=== PATIENT | male | born 1970 | race Caucasian/White ===

== ENCOUNTER 2024-04-26 12:49 | Emergency (ER) | payer OTHER, SELFPAY ==
[2024-04-26 12:49] VITALS: BP 109/85; PULSE 68; RESP 18; TEMP 36.3; O2SAT 94; BMI 29.5
--- NOTE | 2024-04-26 13:03 | EKG12_ITS ---
Test Reason : Blood Pressure : / mmHG Vent. Rate : 079 BPM Atrial Rate : 079 BPM P-R Int : 160 ms QRS Dur : 098 ms QT Int : 400 ms P-R-T Axes : 043 056 033 degrees QTc Int : 458 ms Normal sinus rhythm Normal ECG No previous ECGs available Confirmed by Bhupendra Arechiga ([id number]), commissioning editor CLAYTON PATE ([id number]) on 04/29/2024 2:29:51 PM Referred By: Everardo Guthrie Confirmed By:Bhupendra Arechiga
--- NOTE | 2024-04-26 13:06 | EX.ED.DYSGE1 ---
HPI <JANNETTE Vogel - Last Filed: 04/26/24 14:16> History of Present Illness Chief Complaint: Syncope Narrative Narrative: Patient is a 53-year-old male with history of hyperlipidemia who [facility] after a syncopal episode. Patient works for a school district, he was fixing the water fountain's. Patient states he was constantly laying flat and standing up, he states that when he laid flat, then got up he felt dizzy and lightheaded and felt like he was going to pass out. He then felt sweaty and nauseous. Patient did try to vomit a trash can have the trash can was on wheels and he thinks he fell skinning the back of his head. Patient states he then laid down on the floor, he did feel better. His daughter is the school nurse, and called the patient's and brought him here. Patient denies any chest pain or shortness of breath. Pay states he was shaky however this is improving. FOR[facility]LY [facility], [facility]–1983 <JANNETTE Vogel - Last Filed: 04/26/24 14:16> [facility], [facility]1983 Medical History (Updated 04/26/24 @ 14:16 by JANNETTE Vogel) Dizziness Home Medications ?Medication ?Instructions ?Recorded ?Last Taken ?Type pravastatin 20 mg tablet 20 mg PO QHS 04/26/24 Unknown History Allergy/AdvReac Type Severity Reaction Status Date / Time No Known Allergies Allergy Verified 04/26/24 12:53 Family History no significant family his Surgical History no surgical history ROS <JANNETTE Vogel - Last Filed: 04/26/24 14:16> ROS ED ROS Narrative Constitutional: Negative for fever, chills, weight loss, weakness Eyes: Negative for vision loss, vision change, double vision ENT: Negative for any sore throat, ear pain, congestion Cardiovascular: Negative for any chest pain, tightness, palpitations Respiratory: Negative for any cough, sputum production, hemoptysis, dyspnea, dyspnea on exertion, orthopnea Gastrointestinal: Negative for any abdominal pain, nausea, vomiting, diarrhea, constipation, blood in stool, blood in vomit : Negative for any urinary frequency, dysuria, retention, blood in urine Muscle skeletal: Negative for any neck pain, back pain Neurological: Negative for any headache. Positive for syncope, dizziness Skin: Negative for any rashes, itching, lacerations. Abrasion to the occiput Psychiatric: Negative for any depression, anxiety, stress, suicidal ideation, homicidal ideation Hematologic: Negative for any excessive bruising, easy bleeding EXAM <JANNETTE Voegl - Last Filed: 04/26/24 14:16> Physical Exam Narrative Exam Narrative: Vital signs reviewed. Patient alert and orient x 4, patient is acting appropriate. HEET: Head normocephalic atraumatic, TMs clear bilaterally. Posterior pharynx is clear, moist mucous membranes. Nares clear bilaterally. Pupils are equal round reactive to light, negative for any hemotympanum or septal hematoma. Neck: Supple with no lymphadenopathy or tenderness. No signs of meningismus. Cardiac: Regular rate and rhythm no murmurs gallops or rubs, equal peripheral pulses bilaterally. Respiratory: Lungs clear to auscultation bilaterally. No chest tenderness. Abdomen: Soft, nontender, nondistended. No abdominal bruit or pulsatile masses. No hepatosplenomegaly Extremities: No peripheral edema, no signs of gross trauma or deformity. Active full range of motion of all extremities. Neuro: Cranial nerves II through XII intact, no focal neurological deficits. Skin: Clean dry and intact with no rash, purpura, petechiae, vesicles or pustules. Backs/flank: No CVA tenderness, no midline spinal tenderness, no deformity. Psych: Normal mood and affect. No SI, HI or acute psychosis. Const Vital Signs: 04/26/24 12:49 04/26/24 13:15 04/26/24 13:49 Temperature 97.4 F L Temperature Source Oral Pulse Rate 68 70 Respiratory Rate 18 Respiratory Pattern Normal Blood Pressure 109/85 H 118/80 Blood Pressure Mean 93 92 Pulse Ox 94 95 Oxygen Delivery Method Room Air Room Air 04/26/24 14:00 Temperature Temperature Source Pulse Rate 79 Respiratory Rate Respiratory Pattern Blood Pressure 121/83 H Blood Pressure Mean 95 Pulse Ox 96 Oxygen Delivery Method Room Air <Dr. Everardo Guthrie MD - Last Filed: 04/26/24 14:02> Physical Exam Const Vital Signs: 04/26/24 12:49 04/26/24 13:15 04/26/24 13:49 Temperature 97.4 F L Temperature Source Oral Pulse Rate 68 70 Respiratory Rate 18 Respiratory Pattern Normal Blood Pressure 109/85 H 118/80 Blood Pressure Mean 93 92 Pulse Ox 94 95 Oxygen Delivery Method Room Air Room Air 04/26/24 14:00 Temperature Temperature Source Pulse Rate 79 Respiratory Rate Respiratory Pattern Blood Pressure 121/83 H Blood Pressure Mean 95 Pulse Ox 96 Oxygen Delivery Method Room Air [facility] <Niall DuqueAVRIL-C - Last Filed: 04/26/24 14:16> [facility] Lab Data Labs: Laboratory Results - last 24 hr 04/26/24 13:20 WBC 12.0 H RBC 4.83 Hgb 15.2 Hct 44.2 MCV 91.5 MCH 31.5 MCHC 34.4 RDW Std Deviation 43.1 RDW Coeff of Rosibel 12.9 Plt Count 276 MPV 8.7 Immature Gran % (Auto) 0.600 Neut % (Auto) 84.6 H Lymph % (Auto) 9.0 L [place] % (Auto) 4.9 Eos % (Auto) 0.6 Baso % (Auto) 0.3 Absolute Neuts (auto) 10.1 H Absolute Lymphs (auto) 1.08 Nucleated RBC % 0 Sodium 136 Potassium 3.8 Chloride 104 Carbon Dioxide 25.0 Anion Gap 7 BUN 17 Creatinine 1.08 Estim Creat Clear Calc 84.42 Est GFR (MDRD) Af Amer 91 Est GFR (MDRD) Non-Af 76 BUN/Creatinine Ratio 15.7 Glucose 181 H Calcium 9.2 Total Bilirubin 1.00 AST 23 ALT 40 Alkaline Phosphatase 72 Troponin I High Sens 19 Total Protein 7.7 Albumin 4.0 Globulin 3.7 Albumin/Globulin Ratio 1.1 Radiography Diagnostic Testing: Clinical Impression(s) from Imaging Studies Chest X-Ray 04/26/24 13:55 IMPRESSION: Patchy opacities in multiple places likely representing atelectasis. Early/developing pneumonia cannot be excluded. Follow-up chest imaging to resolution is recommended. Electronically Signed: Casey Rivera MD at 14:08 EDT , EKG Normal sinus rhythm: Attestation: I personally reviewed and interpreted this EKG as follows: Comments: Normal sinus rhythm, rate of 79 bpm, OK 160 ms, QRS duration 90 ms, no acute ST elevation, no acute infarct noted. Treatment and Re-Evaluation :: Patient appears generally well, vital signs are stable, patient is nontoxic-appearing. Presenting to the emergency department with complaints of a syncopal episode, dizziness from laying to standing today while at work. Patient on my initial evaluation was looking well, slightly shaky however acting appropriate. Patient received a cardiac workup including some BMP, CMP. Patient will receive an EKG as well. Patient given IV fluids IV Zofran. Patient will need to be reevaluated. Patient CBC shows slight leukocytosis with white blood count 12.0, patient's chemistry showed a glucose of 181, troponin was 19 which is negative. EKG was unremarkable. Chest x-ray was negative. At this time, patient will be diagnosed with a vasovagal like syncope. I do not believe there is any concern for ACS or OH or any acute cardiopulmonary pathology. Patient will return to the emergency department for any worsening dizziness, syncopal episodes, he will follow-up outpatient. Patient was able to ambulate in the part without difficulty. Patient is agreeable with the plan and is stable for discharge. <Dr. Everardo Guthrie MD - Last Filed: 04/26/24 14:02> [facility] Narrative Medical decision making narrative: I have personally performed a face to face assessment of the patient and have reviewed the HECTOR Note. I performed a substantive portion of the visit including all aspects of the following. My garcia findings include: History is 53-year-old male past medical history of high cholesterol. Works in maintenance at an area school. Today had a near syncopal event. Said he felt fine earlier in the day. Has had no recent exertional chest pain or exertional dyspnea. No palpitations. He has not been recently ill. He denies nausea vomiting or diarrhea. He denies melena. He denies a fever. Denies any dysuria. He had this happen 1 other time but it was years ago. Exam is [well-appearing 53-year-old male. Vital signs are stable afebrile. Pulse ox 94% on room air no hypoxia. H EENT exam unremarkable. He has had a small abrasion top of his head. He does not need stone. Pupils round react to light. No facial droop. Neck nontender. Trachea midline. Back nontender. Lungs clear to auscultation bilaterally. Heart regular rate and rhythm rate about 70 no murmur. Chest wall and ribs are nontender. Abdomen soft nontender. No peritoneal signs. No bruising. Pelvic girdle intact. Moving all 4 extremities. 5 out of 5 equipment validation specialist strength. Dorsi plantarflexion intact. No deformity. Nontender no edema. No cords. Neurologically is awake and alert. Answering questions following commands. NIH is 0.] Medical Decision Making [53-year-old male near-syncopal episode at work. He was having no symptoms prior to this. He has had no recent cardiac symptoms such as chest pain or shortness of breath. He had this 1 other time it was years ago he never had a specific cause. He has a benign exam at this time. Undergo cardiac workup.] Other additions or changes: [None] History & Record Review Discussion w/independent historian: Patient Additional record(s) reviewed:: No prior records Lab Data Attestation: I reviewed the patient's lab results. Lab results narrative: CBC white count 12. H&H 15 and 44. Platelets 276. Normal sinus rhythm no acute signs of OH or ischemia. No dysrhythmia. Labs: Laboratory Results - last 24 hr 04/26/24 13:20 WBC 12.0 H RBC 4.83 Hgb 15.2 Hct 44.2 MCV 91.5 MCH 31.5 MCHC 34.4 RDW Std Deviation 43.1 RDW Coeff of Rosibel 12.9 Plt Count 276 MPV 8.7 Immature Gran % (Auto) 0.600 Neut % (Auto) 84.6 H Lymph % (Auto) 9.0 L [place] % (Auto) 4.9 Eos % (Auto) 0.6 Baso % (Auto) 0.3 Absolute Neuts (auto) 10.1 H Absolute Lymphs (auto) 1.08 Nucleated RBC % 0 Sodium 136 Potassium 3.8 Chloride 104 Carbon Dioxide 25.0 Anion Gap 7 BUN 17 Creatinine 1.08 Estim Creat Clear Calc 84.42 Est GFR (MDRD) Af Amer 91 Est GFR (MDRD) Non-Af 76 BUN/Creatinine Ratio 15.7 Glucose 181 H Calcium 9.2 Total Bilirubin 1.00 AST 23 ALT 40 Alkaline Phosphatase 72 Troponin I High Sens 19 Total Protein 7.7 Albumin 4.0 Globulin 3.7 Albumin/Globulin Ratio 1.1 Radiography Chest X-Ray - ED: 1 View, Read by ED Physician, Heart, Lungs, Mediastinum, Bony Structures, No Acute Disease and Chronic Changes Diagnostic Testing: Clinical Impression(s) from Imaging Studies Chest X-Ray 04/26/24 13:55 IMPRESSION: Patchy opacities in multiple places likely representing atelectasis. Early/developing pneumonia cannot be excluded. Follow-up chest imaging to resolution is recommended. Electronically Signed: Casey Rivera MD at 14:08 EDT Reading Location ID and State: [facility] / [place] , Service support , Chest x-ray, portable, single view interpreted by myself shows no acute abnormality. Normal cardiac silhouette mediastinum. Normal lung ramos. Slightly elevated right hemidiaphragm. No infiltrates or effusions. Rhythm Strip Rhythm Strip: Sinus Rhythm Rate: 79 Ectopy: None EKG Normal sinus rhythm: Interpretation: Sinus Rhythm and No Acute Injury Pattern Discharge Plan Triage Chief Complaint: Syncope ED Midlevel Provider: Niall Duque ED Provider: Everardo Guthrie Dx/Rx/DC Orders Clinical Impression: Near syncope Instructions: Causes of Syncope, ED Fainting, Vagal Reaction, ED Fainting, Uncertain Cause Prescriptions: No Action pravastatin 20 mg tablet 20 mg PO QHS Primary Care Provider: Aditya Villarreal NP Referrals: Aditya Villarreal NP, [facility] SC[facility]ER-C [Primary Care Provider] - Activity Restrictions/Additional Instructions: Please maintain your hydration. I would follow-up with your PCP regarding this episode. Return for any worsening dizziness, near syncopal episodes. Print Language: Brazilian Disposition Disposition: Home, Self Care
[2024-04-26] MEDS: 0.9% Normal Saline (1000mL) 1,000 ML 999 ML IV (13:21)
[2024-04-26] MEDS: Ondansetron 4 MG/2 ML Vial IV (13:21)
[2024-04-26 13:32] LABS: Absolute Lymphocyte Count 1.08 X10^3/uL (0.83-4.51); Absolute Neutrophil Count 10.1 X10^3/uL (2.0-7.7); Basophil# 0.04 X10^3/uL; Basophil% 0.3 % (0-1); Eosinophil# 0.07 X10^3/uL; Eosinophils% 0.6 % (0-5); Hematocrit 44.2 % (40-54); Hemoglobin 15.2 g/dL (13.0-16.5); Lymphocyte # 1.08 X10^3/ul (0.83-4.51); Mean Corp Hgb Conc 34.4 g/dL (32-36); Mean Corpuscular Hgb 31.5 pg (27.0-32.0); Mean Corpuscular Volume 91.5 fL (80-94); Mean Platelet Vol. 8.7 fl (6.2-12.0); Monocyte# 0.59 X10^3/uL; Monocyte% 4.9 % (0-10); NRBC Flagged by Analyzer 0 % (0-5); Neutrophil % 84.6 % (47-70); Platelet Count 276 K/mm3 (150-450); RBC Distribution Width CV 12.9 % (11.6-14.6); RBC Distribution Width SD 43.1 fl (35.1-43.9); Red Blood Count 4.83 M/mm3 (4.6-6.2)
[2024-04-26 13:49] VITALS: BP 118/80; PULSE 70; O2SAT 95
[2024-04-26 13:55] LABS: ALB/GLOB Ratio 1.1 RATIO (0.9-2.4); AST(SGOT) 23 U/L (15-37); Alanine Aminotransfer ALT/SGPT 40 U/L (16-61); Alkaline Phosphatase 72 U/L (45-117); Anion Gap 7 (5-15); BUN 17 mg/dL (7-18); BUN/Creat Ratio 15.7 RATIO (10-20); Calcium,Total 9.2 mg/dL (8.5-10.1); Chloride 104 mmol/L (98-107); Creatinine, Serum 1.08 mg/dL (0.70-1.30); EST Glomerular Filtration Rate 76 mL/min (>60); Est Glom Filt Rate - Afr Amer 91 mL/min (>60); Estimated Creatinine Clearance 84.42 ml/min; Globulin 3.7 g/dL (2.2-4.2); Glucose 181 mg/dL (74-106); Potassium 3.8 mmol/L (3.5-5.1); Protein, Total 7.7 g/dL (6.4-8.2); Sodium Level 136 mmol/L (136-145); Troponin-I HS 19 pg/mL (3.0-78.0)
--- NOTE | 2024-04-26 13:55 | RAD_ITS ---
STUDY: X-RAY CHEST REASON FOR EXAM: Male, 53 years old. Near syncope. TECHNIQUE: Single frontal view of the chest. COMPARISON: None. FINDINGS: Elevation of the right hemidiaphragm. Patchy opacities in the right lower lobe, right middle lobe, left lower lobe and left upper lobe which likely atelectasis. Early/developing pneumonia cannot be excluded so follow-up chest imaging to resolution is recommended. There is no demonstrated pleural abnormality. Normal size heart. Normal mediastinum and jalyn. Normal visualized pulmonary arteries. Normal visualized aortic arch and descending thoracic aorta. No abnormality of the visualized soft tissue structures of the upper abdomen. RAD/Chest 1 View (Portable) IMPRESSION: Patchy opacities in multiple places likely representing atelectasis. Early/developing pneumonia cannot be excluded. Follow-up chest imaging to resolution is recommended. Electronically Signed: Casey Rivera MD at 14:08 EDT ,
[2024-04-26 14:00] VITALS: BP 121/83; PULSE 79; O2SAT 96
[2024-04-26 14:17] VITALS: O2SAT 98
[2024-04-26 14:18] VITALS: BP 121/83; PULSE 79; RESP 17; TEMP 36.6; O2SAT 96
== END 2024-04-26 14:24 | disposition home or self-care (01) ==
PROVIDERS: Nurse Practitioner; Emergency Provider Emergency Medicine; PCP Nurse Practitioner Primary Care; Referring Provider Emergency Medicine; Visit Provider Emergency Medicine
DX: R55 Syncope and collapse (principal); E78.5 Hyperlipidemia, unspecified; Z79.899 Other long term (current) drug therapy
CPT/HCPCS: 71045; 80053; 84484; 85025; 93005; 96361; 96374; 99283; J7030; A4216; J2405